=== PATIENT | female | born 1950 | race Caucasian/White ===

== ENCOUNTER 2025-04-30 22:01 | Inpatient (IN) | payer MEDICARE, OTHER, SELFPAY ==
[2025-04-30] VITALS (7 sets, daily range): BP systolic 130–174; BP diastolic 78–100; BMI 17.5; BMI 18.9
[2025-04-30 19:51] LABS: Urine Character Clear (Clear)
--- NOTE | 2025-04-30 19:56 | ED.GENMED ---
History of Present Illness
General
Chief Complaint: Abnormal Lab Value
Source: patient
Exam Limitations: none
Time Seen by Provider: 04/30/25 19:56
Nursing documentation reviewed up to this point in time: agreed with
History of Present Illness
History of Present Illness:
Patient to ED for admission, IV antibiotics after positive blood culture result. She has a complex past medical history. 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 She has had episodes of rigors for 1 year. States her providers
have been unable to identify the reason for this. She states she takes Dilaudid p.o. at the onset of her symptoms. She is followed by GI at [facility]. She states that she receives magnesium infusions every Friday through Friday through a port. States
she was admitted to [facility] in June for septic shock. States this week she started to feel weaker than her normal. She had a trip and fall on Friday and sustained a hematoma to her right orbit left wrist and right knee. She was seen for routine
visit by visiting nurse on Friday. Patient states visiting nurse was concerned that she was declining. After consulting with the GI provider, visiting nurse yeni labs including blood cultures. Patient states she received a call today that her
blood culture was positive for Klebsiella oxytoca. She was advised to come to the ED for admission and IV antibiotics. I was able to review culture results through her phone/[employer]. Request for lab results sent to [facility], waiting for results. She
denies fever or chills. States she feels just slightly weaker than her normal. To ED accompanied by spouse.
Past History
Past History
ED Past Medical History: Other (Short gut, malrotation.)
ED Past Surgical History: Appendectomy, Orthopedic and Other (Lumpectomy, hemorrhoidectomy, cataracts)
Review of Systems
Review of Systems
Allergies reviewed?: Yes
All Other Systems: ROS reviewed and negative except as documented in HPI and ROS
Constitutional: Reports no symptoms
EENT: Reports no symptoms
Respiratory: Reports no symptoms
Cardiac: Reports no symptoms
ABD/GI: Reports no symptoms
: Reports no symptoms
Musculoskeletal: Reports no symptoms
Skin: Reports no symptoms
Neurological: Reports weakness
Psychiatric: Reports no symptoms
Phy Exam
General Physical Exam
General Presentation: no apparent distress
General age: appears stated age
General Skin: warm and dry
General Habitus: frail
General Mental: alert
Cardiovascular Exam
Cardiovascular Exam: regular rate/rhythm and no edema
Pulmonary Exam
Pulmonary Exam: lungs clear and no respiratory distress
Gastrointestinal Exam
Gastrointestinal Exam: normal bowel sounds, non tender, soft, no organomegaly and non distended
Musculoskeletal Exam
Musculoskeletal Exam: full ROM and neuro vasc intact
Skin Exam
Skin Exam: normal color, warm/dry and no rash
Psychiatric Exam
Psychiatric Exam: normal mood/affect
Course
Orders/Labs/Results
Orders:
Orders
04/30/25 Breakfast
Regular
At Your Request: Full Participation
04/30/25 19:20
IV Insert/Care/Rem.- Treatment PRN
04/30/25 19:39
Complete Blood Count/With Diff Urgent
Comprehensive Metabolic Panel Urgent
Lactic Acid Q4H
Comment: ON ICE, CANCEL 2ND ORDER IF FIRST LACTIC ACID LEVEL <2
Magnesium Urgent
Comment: ADD ON
Urinalysis Reflex To Culture Urgent
Date Specimen was Collected: 04/30/25
Time Specimen was Collected: 19:21
Urine Microscopic Reflex Cult Urgent
Blood Culture Q20M
PETER Source: Blood/Venous
Specimen Description:
Comment: Urgent from separate sites. If patient screens positive for possible sepsis
Urine Culture Urgent
PETER Source: U
Specimen Description:
Date Specimen was Collected: 04/30/25
Time Specimen was Collected: 19:21
04/30/25 20:47
Add On- LAB Urgent
Tests Added?: Magnesium
04/30/25 21:04
Blood Culture Q20M
PETER Source: Blood/Venous
Specimen Description:
Comment: Urgent from separate sites. If patient screens positive for possible sepsis
04/30/25 21:08
INFECTIOUS DISEASE CONSULT Urgent
Consulting Provider: Ivanna Swift
Was physician already notified: Yes
04/30/25 21:09
CefTRIAXone [Rocephin] 1,000 mg IV NOW STA
04/30/25 21:33
Echo 2D MMode Color/Doppler Routine
Reason for Study: sob
Head wo Contrast CT [CT Head W/o Iv Contrast] Stat
Comment:
Reason For Exam: fall
04/30/25 21:37
CR Chest - 2 Views Stat
Comment:
Reason For Exam: sob
04/30/25 21:45
Admit/Transfer Patient As Directed
Co-Sign Provider:
Level of Care: Inpatient admission
Assign to:: Telemetry
Physician / Group: july keane
Diagnosis: bactremia
Reason for Telemetry: Arrhythmia
Date to Stop Telemetry: 05/03/25
Time to Stop Telemetry: 11:00
Reason for Hospitalization: bactremia
Expected length of stay greater than two midnights?: Yes
ELOS- Estimated Length of Stay in days: 3
I certify the patient meets the requirements for IP care: Yes
PRN Pain Medication Management As Directed
May give lesser potent ordered pain med per pt: Yes
preference::
Protocol:: Medication orders for pain may be administered in a
manner that supports deferring to patient preference
when the pt is:
- Requesting an ordered lesser potent pain medication.
Least to most potent pain medications are defined
as: acetaminophen < NSAID < tramadol < opioids
(morphine, oxycodone, hydromorphone).
- Requesting a lesser dose of the same medication IF
ORDERED.
- Requesting a less intrusive route of administration
if both routes are prescribed by the provider (PO <
IV).
04/30/25 21:47
Code Status As Directed
Resuscitation Status: Full Code
04/30/25 23:30
Acetaminophen [Tylenol] 650 mg PO Q4HPRN PRN
Bisacodyl [Dulcolax] 10 mg RECTAL [id number] PRN
Diphenhydramine [Benadryl] 25 mg PO HS PRN insomnia
Docusate W/Senna [Senokot-S] 1 tablet PO BIDPRN PRN
Melatonin 10 mg PO HS PRN insomnia
Oxycodone [Roxicodone] 5 mg PO Q6H PRN pain
Polyethylene Glycol Powder [Miralax] 17 grams PO DAILYPRN PRN
04/30/25 23:30
EKG [Electrocardiogram (*1)] Routine
Reason for Study: Atrial Fibrillation
Activity As Directed
Activity Level: As Tolerated
Vital Signs As Directed
Frequency: Per unit guidelines
Pt Eval And Treat Routine
Activity Level: As Tolerated
DX Deep Vein Thrombosis Video Routine
05/01/25 06:31
Basic Metabolic Panel IN AM
Complete Blood Count/No Diff IN AM
05/01/25 08:00
Aspirin Chewable [Low Strength Aspirin] 81 mg PO DAILY
Citalopram [Celexa] 40 mg PO DAILY
Diphenoxylate / Atropine [Lomotil] 1 tablet PO BID@0800,1700
Gabapentin [Neurontin] 200 mg PO BID
Lidocaine [Lidocaine 4% Patch] 1 patch TOPICAL DAILY
Apply Lidocaine patch(s) to:: toes
Magnesium Oxide 200 mg PO BID
Metoprolol [Lopressor] 12.5 mg PO BID
Pantoprazole [Protonix] 40 mg PO BID
Potassium Citrate [Urocit-K] 10 meq PO DAILY
teduglutide See Dose Instructions SC DAILY
05/01/25 18:00
Enoxaparin Sodium [Lovenox] 40 mg SC QPM
05/01/25 21:00
CefTRIAXone [Rocephin] 1,000 mg IV Q24H
Abnormal Lab Results
04/30/25
19:39
WBC 3.8 L 10^3/uL
(4.8-10.8)
RBC 3.36 L 10^6/uL
(4.20-5.40)
Hgb 10.8 L g/dL
(12.0-16.0)
Hct 34.0 L %
(37.0-47.0)
MCV 101.2 H fL
(81.0-99.0)
MCH 32.1 H pg
(27.0-31.0)
MCHC 31.8 L g/dL
(33.0-37.0)
Neutrophils % 39.4 L %
(42.2-75.2)
Monocytes % 10.5 H %
(1.7-9.3)
Chloride 113 H mmol/L
(98-107)
Magnesium 1.5 L mg/dl
(1.6-2.3)
Leukocyte Esterase Rfl 1+ A
(Negative)
Urine Bacteria (Reflex) Moderate A
(Negative)
04/30/25 19:39
04/30/25 19:39
Vital Signs
Initial and Last Documented VS:
Initial Vital Signs
Temp Pulse Resp BP Pulse Ox
97.5 F 97 20 174/97 100
04/30/25 19:09 04/30/25 19:09 04/30/25 19:09 04/30/25 19:09 04/30/25 19:09
Last Documented Vital Signs
Temp Pulse Resp BP Pulse Ox
97.9 F 79 18 98/51 95
05/01/25 20:05 05/01/25 20:05 05/01/25 20:05 05/01/25 20:05 05/01/25 20:05
*Pulse Oximetry
SaO2: 100
Oxygen Mode of Delivery: Room air
Patient hypoxic: no
*Critical Care Note
Total Time (30-74mins, 75-104mins- exclusive of procedures): Not Applicable
Update Note
Update Note:
Patient to the emergency department for admission, IV antibiotics. She had blood cultures drawn on Friday which resulted positive for Klebsiella oxytoca. She is afebrile. Reports feeling slightly weaker than her normal. She follows with GI at
[facility] for her history of short gut and malrotation. She has a port. Receives magnesium infusions Friday through Friday weekly. No redness or swelling surrounding port. Case discussed with Dr. Swift. Recommends IV ceftriaxone which will be started
after second blood culture. Patient will be admitted to the hospitalist service with ID consultation.
ED Attending Note
-
Portions of this chart may have been created with voice recognition software.� Occasional wrong word or��sound alike� substitutions may have occurred due to the inherent limitations of voice recognition software.
Discharge Plan
Departure
Patient Disposition: Admit
Date of Disposition: 04/30/25
Time of Disposition: 21:05
Presentation/result/management discussed w/ accepting MD/DO: Hospitalist
Patient with high blood pressure during this ER visit?: No
Condition: Good
Discharge Problem:
Blood bacterial culture positive
Interventions
Interventions:
*Risk Screen - Suicide Last Done: 04/30/25 23:10
*General Assessment Last Done: 04/30/25 19:09
*Neglect/Abuse Screening Last Done: 04/30/25 19:09
*ED- Fall Risk Assessment Last Done: 04/30/25 20:48
*ED COVID-19 Vaccine History Last Done: 04/30/25 23:10
*ED Influenza Vaccine History Last Done: 04/30/25 20:48
*Nursing Disposition Last Done: 04/30/25 22:53
Discharge Date and Time
Discharge Date/Time: 04/30/25 22:56
[2025-04-30 20:01] LABS: Urine Squamous Cell >30 /LPF (Few)
[2025-04-30 20:03] LABS: Urine Red Blood Cell 0-2 /HPF (0-2)
[2025-04-30 20:04] LABS: Hematocrit 34.0 % (37.0-47.0); Hemoglobin 10.8 g/dL (12.0-16.0); Mean Corp Hgb Conc. 31.8 g/dL (33.0-37.0); Mean Corpuscular Volume 101.2 fL (81.0-99.0); Platelet Count 137 10^3/uL (130-400); Red Cell Dist. Width 13.2 % (11.5-14.5)
[2025-04-30 20:07] LABS: ALT (SGPT) 19 U/L (0-35); AST (SGOT) 18 U/L (14-36); Albumin 3.8 g/dl (3.5-5.0); Alkaline Phosphatase 70 U/L (38-126); Blood Urea Nitrogen 16 mg/dl (7-17); Calcium 8.9 mg/dl (8.4-10.2); Carbon Dioxide 22 mmol/L (22-30); Chloride 113 mmol/L (98-107); Glucose 89 mg/dl (70-99); Potassium 4.2 mmol/L (3.5-5.1); Sodium 141 mmol/L (135-145); Total Protein 6.3 g/dl (6.3-8.2); eGFR > 60.00
[2025-04-30 20:25] LABS: Nucleated Red Blood Cells % 0 %
--- NOTE | 2025-04-30 21:15 | HPS.HSE ---
Family Physician
-
Family Physician:
Chief Complaint
-
rigors and weakness
History of Present Illness
74 year old with PMH for short gut syndrome, atrial fib presented to us with positive blood culture. patient was not feeling well for past one week. she complained of rigors and weakness. she had fall on Friday. patient not sure how she fell but
thinks her legs gave up and fell. she landed on her buttocks, hit head on the door. her right eye is bruised. her left hand was bruised.due the short gut syndrome and chronic malrotation, her magnesium is chronically low. she get 3gram magnesium
daily from Friday to Friday. she had an blood work as well as blood culture as outpatient. her blood culture came back positive for klebsiella oxytoca.She was advised to come to the ED for admission and IV antibiotics. patient denied fever, chills,
chest pain,sob. stated some ONEAL. denied dizzy or syncope. denied abdominal pain,n,v,d. denied dysuria or hematuria. stated increased urination at night time.
Patient received a dose of ceftriaxone in ER. Blood culture sent from ER. Admitting for further manage.
Medical History
Past Medical History
Past Medical History: Reports Other
Additional Past Medical History:
Short gut syndrome, paroxysmal AF, septic shock, gangrene of the foot
Past Surgical History: Reports Other
Additional Past Surgical History:
fundectomy
small intestine removal
appendectomy
Social History
Tobacco: Non-smoker
Alcohol: None
Drug: None
Personal:
Living: With Family
Family History
Family History: Not pertinent
Allergies / Home Medications
Allergies reflects when Allergies were last updated in [employer]
Home Medications with original date entered in [employer].
Allergy/Medication List:
Allergies
Allergy/AdvReac Type Severity Reaction Status Date / Time
chlorhexidine Allergy Hives Verified 04/30/25 19:09
prochlorperazine (From Allergy Unknown Verified 04/30/25 19:09
Compazine)
Review of Systems
-
Constitutional: Reports No Symptoms and Other (rigors)
EENT: Reports No Symptoms
Respiratory: Reports No Symptoms
Cardiac: Reports No Symptoms
Abdomen/GI: Reports No Symptoms
: Reports No Symptoms
Musculoskeletal: Reports No Symptoms
Skin: Reports No Symptoms
Neurological: Reports Weakness
Endocrine: Reports No Symptoms
Hematologic/Lymphatic: Reports No Symptoms
Psych: Reports No Symptoms
Physical Exam
Vital Signs
Vital Signs
Temp Pulse Resp BP Pulse Ox
97.5 F 76 17 146/78 100
04/30/25 19:09 04/30/25 20:45 04/30/25 20:45 04/30/25 20:39 04/30/25 21:08
Physical Exam
General: Well Developed, Well Nourished and No Apparent Distress
HEENT: NormoCephalic, Moist mucous membranes and Atraumatic
Respiratory: Clear
Cardiac: S1/S2 and Regular Rhythm; No Murmur or Rub
GI: Soft, Non Tender, Non Distended and Normal Bowel Sounds; No Organomegaly
Rectal: Deferred by Provider
Musculoskeletal: No Clubbing, No Cyanosis and No Edema
Skin: No Rash
Neuro: AO x 3 and Nonfocal/grossly intact
Psych: Calm
Laboratory Results
-
04/30/25 19:39
04/30/25 19:39
Laboratory Results
Lactic Acid Cancelled 04/30/25 23:30
Total Bilirubin 0.3 mg/dl (0.2-1.3) 04/30/25 19:39
AST 18 U/L (14-36) 04/30/25 19:39
ALT 19 U/L (0-35) 04/30/25 19:39
Alkaline Phosphatase 70 U/L (38-126) 04/30/25 19:39
Data Reviewed
-
Lab Data: Labs Reviewed by me
Impression/Plan
-
# Bacteremia
- Outpatient blood cultures positive for Klebsiella oxytoca
- Repeat blood culture
- Ceftriaxone initiated
- ID consulted
- Obtain chest x-ray, UA and echo
# Mechanical fall
- Obtain CT of head
- PT consulted
# History of short gut syndrome/malrotation
#malabsorption
# Chronic hypomagnesemia
- Mag level pending
- Follows GI at [facility]
# Paroxysmal A-fib
- Obtain EKG
- Metoprolol continue
# DVT prophylax
- Lovenox
# CODE STATUS
- Full code
[2025-04-30] MEDS: ROCEPHIN 1000 MG IV (21:17)
--- NOTE | 2025-04-30 21:17 | W.PN.UPDATE ---
Addendum entered and electronically signed by Harlan Seo MD 04/30/25 22:11:
Upgrade to TLM monitor due to hi grade bacteremia, HX card arrest and HX septic shock
Original Note:
Update Note
Progress Note Update
This note serves as an addendum to the H&P by servicing rep Dave MARLEY�
HPI�
74F complex HX with acquired short gut syndrome , remote HX 19 feet of small bowel resection( 2007) due to severe diverticulitis and SB malrotation send to ER for POS Klebsiella BCx ( 04/10/25) came to ER:
- frequent episodes of rigors for unclear reason
- followed by GI at [facility]
- on Magnesium infusions Q Friday through Friday through a port.
- HX admission to [facility] in June for septic shock.
- Report trip and fall on Friday and sustained a hematoma to her right orbit left wrist and right knee.
- Has VN home visit on Friday,. was concerned that she was declining
- VN draw BCx ( 04/29/25) suggested by Primary GI
- received a call today that POS BCx for Klebsiella oxytoca
- She was advised to come to the ED for admission and IV antibiotics.
ROS:
denies fever or chills.
- weaker than her normal.
ER consulted ID
- 2 BCx sent
- Empiric IV CFTZ
Reviewed VS:
04/30/25
19:09
Temp 97.5 F
Pulse 97
Resp Rate 20
Blood pressure 174/97
SaO2 100
Oxygen Mode of Delivery Room air
PE
Gen: Not toxic , appropriate
HEENT: Rt periorbital hematoma
Neck: supple
Lungs: symmetric AE. No additional sound
Cor:RRR S1 S2 soft SM at LUSB
Abdomen:�soft NT NG
DISC PAD GRINDER: AAO3 NFND
MS:no edema
Psych: Nl mood and affect
Lt upper chest Port and balloon port - Non tender. No evidence of local cellultis
Relevant Data�
04/30/25
19:39
WBC 3.8 L
Hgb 10.8 L
Plt Count 137
Sodium 141
Potassium 4.2
Chloride 113 H
BUN 16
Creatinine 0.9
eGFR > 60.00
Magnesium 1.5 L
BCx time 2 sent
NO PRIOR hospitalist admission:
ASSESSMENT & PLAN
Klebsiella Bacteremia of unclear source but broad DDX: Endocarditis, Hardware( PORT) infection, source or Bowel
Known HX soft systolic murmur at Lt upper sternal border
No peripheral evidence of endocarditis
Hemodynamically stable
- BCx sent
- UA
- CXR
- IVF NS
- Empiric IV CFTZ
- Transthoracic ECHO to screen
- ID consult
Fall with head injury sustained R periorbital hematoma
HX suggestive of mechanical fall
- denied ONEAL, N/V, abnormal vision
- HCT to be thorough - clinically low yield but not evalautated post fall
Hypomagnesemia due to acquired short gut syndrome
Remote HX 19 feet of small bowel resection( 2007) due to severe diverticulitis and SB malrotation
- Regular infusion at [facility]
DVT Px: LMWH
Full code
IP MS
[2025-04-30 21:31] LABS: Magnesium 1.5 mg/dl (1.6-2.3)
[2025-05-01] VITALS (7 sets, daily range): BP systolic 96–136; BP diastolic 51–81; PULSE 69; BMI 18.9
[2025-05-01 07:20] LABS: Hematocrit 33.6 % (37.0-47.0); Hemoglobin 10.9 g/dL (12.0-16.0); Mean Corp Hgb Conc. 32.4 g/dL (33.0-37.0); Mean Corpuscular Volume 100.3 fL (81.0-99.0); Platelet Count 139 10^3/uL (130-400); Red Cell Dist. Width 12.9 % (11.5-14.5)
[2025-05-01 07:46] LABS: Blood Urea Nitrogen 16 mg/dl (7-17); Calcium 8.5 mg/dl (8.4-10.2); Carbon Dioxide 22 mmol/L (22-30); Chloride 112 mmol/L (98-107); Estimated Creatinine Clearance 56 ml/min; Glucose 82 mg/dl (70-99); Potassium 3.8 mmol/L (3.5-5.1); Sodium 140 mmol/L (135-145); eGFR > 60.00
[2025-05-01] MEDS: NEURONTIN 200 MG PO ×2 (08:24→19:43)
[2025-05-01] MEDS: LIDOCAINE 4% PATCH TOPICAL (08:24)
[2025-05-01] MEDS: MAGNESIUM OXIDE 200 MG PO ×2 (08:25→19:43)
[2025-05-01] MEDS: LOW STRENGTH ASPIRIN 81 MG PO (08:25)
[2025-05-01] MEDS: UROCIT-K 10 MEQ PO (08:26)
[2025-05-01] MEDS: PROTONIX 40 MG PO ×2 (08:27→19:43)
[2025-05-01] MEDS: LOPRESSOR 12.5 MG PO (08:27)
[2025-05-01] MEDS: CELEXA 40 MG PO (08:28)
--- NOTE | 2025-05-01 09:26 | CM ---
CM met with pt at bedside.
Pt presents from home. Resides with spouse and autistic grandson (age 34). 2 SH with bedroom/bath on 2nd floor. Powder room on first. Independent with ambulation up until a few days ago has been using the RW (owns a RW). Does not drive.
Pt is open with [facility] for magnesium infusions. Port get's accessed on Mondays, daily Mg through Friday then de-accessed.
Hx of home PT with [facility]. no SNF history.
PCP is Dr. Juanito Crane. Pharmacy is [facility].
Anticipated Discharge dispo home with [facility] and possible home PT needs. Pt reports preference is to dc home at [place]. Has a supportive family and a first great grandchild to meet (planned on meeting at [facility]).
--- NOTE | 2025-05-01 10:55 | CON.ID ---
Consultation
-
Date/Time Consultation Requested: April 30, 2025 2108
Date/Time Consultation Performed: May 01, 2025 1100
Requesting Provider: KENDRA Lawler
Performing Provider: Dr. Ivanna Swift
Reason for Consultation: Bacteremia
Chief Complaint / Past History
Chief Complaint
Positive blood culture
History of Present Illness
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
positive blood cultures. She follows with [facility] and has monthly labs drawn. For the past week she has not been feeling well with weakness, rigors and fall. She hit her face during one of the falls. No fever. Of note, recently she was having
trouble flushing the port. The home nurse also had difficulty but finally able to get it to work. The next day she started having the rigors. April 29, home nurse yeni 2 sets of blood cultures, 1 peripherally and the second set from the port.
Patient received a call from her GI physician that blood culture is positive for Klebsiella oxytoca. She therefore came to the ER. She is currently on ceftriaxone. She reports no further rigors since the port was deaccessed on Friday.
Past History
Additional Past Medical History:
Atrial fibrillation
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
Short gut syndrome on IV magnesium via port
History of RCW port polymicrobial infection (06/2024)
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
LCW port placment 07/2024
Appendectomy
Allergy History:
chlorhexidine Allergy (Verified 04/30/25 19:09)
Hives
prochlorperazine (From Compazine) Allergy (Verified 04/30/25 19:09)
Unknown
Medications Reviewed: Yes
Current Antibiotics:
Ceftriaxone
Social History
Tobacco: Non-Smoker
Alcohol: None
Drug: None
Personal:
Living: With Family
Family History
Family History: Not Pertinent
Review of Systems
Review of Systems
General: Chills and Change in Appetite
HEENT: Negative Sinus Problems or Headache
Cardiovascular: Negative Chest Pain
Respiratory: Negative Dyspnea
Gasteroenterology: Other (Chronic frequent bowel movements); Negative Nausea, Vomiting or Diarrhea
Genital / Urological: Negative Dysuria or Flank Pain
Endocrine: Weakness and Fatigue
All systems: All other systems were reviewed and were negative
Vital Signs
Temp Pulse Resp BP Pulse Ox
97.7 F 70 16 116/71 94
05/01/25 08:00 05/01/25 08:00 05/01/25 08:00 05/01/25 08:00 05/01/25 08:00
Physical Exam
Physical Exam
Constitutional: No Acute Distress, Comfortable and Cachetic
Eyes: No Conjunctival Hemorrhage and Sclera Anicteric
Cardiovascular: Regular Rate and S1/S2
Pulmonary: Clear
Gastrointestinal: Soft, Non Tender, Non Distended and Normal Bowel Sounds
Genito-Urinary: Negative CVA Tenderness
Extremities: Negative Edema
Neurological: AO x 3
Lines: Port (LCW port not accesses, no erythema)
Lab / Diagnostic Study Results
05/01/25 06:31
05/01/25 06:31
Abs Immat Gran (auto) 0.0 10^3/uL (0-0.05) 04/30/25 19:39
Absolute Neuts (auto) 1.5 10^3/uL (1.4-6.5) 04/30/25 19:39
Absolute Lymphs (auto) 1.8 10^3/uL (1.2-3.4) 04/30/25 19:39
Absolute Monos (auto) 0.4 10^3/uL (0.1-0.6) 04/30/25 19:39
Absolute Basos (auto) 0.0 10^3/uL (0-0.2) 04/30/25 19:39
Immature Gran % 0.3 % (0-0.5) 04/30/25 19:39
Neutrophils % 39.4 % (42.2-75.2) L 04/30/25 19:39
Lymphocytes % 46.2 % (20.5-51.1) 04/30/25 19:39
Monocytes % 10.5 % (1.7-9.3) H 04/30/25 19:39
Eosinophils % 3.1 % (0-6) 04/30/25 19:39
Basophils % 0.5 % (0-2) 04/30/25 19:39
Lactic Acid Cancelled 04/30/25 23:30
Ur Squamous Epith Cells >30 /LPF (Few) 04/30/25 19:39
Microbiology Results
Micro:
04/30/25 21:04 Blood Culture - Pending
Blood/Venous
04/30/25 19:39 Urine Culture - Pending
Urine
04/30/25 19:39 Blood Culture - Pending
Blood/Venous
04/30/25 CXR: Mild left basilar airspace opacities which may represent atelectasis or pneumonia.
Assessment / Plan
# Klebsiella oxytoca CLABSI (L port), present on admission
- 04/29 outside bcx's 2 bottles from port + K. oxytoca, sensitivity pending
second set of blood cx drawn peripherally negative to date
- Follow repeat blood cx's here (drawn peripherally)
- Continue ceftriaxone pending susceptibility.
# Short gut syndrome on magnesium infusion
# hx CLABSI (R port) with cardiac arrest, septic shock, ischemic digits (06/2024). Port dc'd.
Care Review
Plan reviewed with: Physician (Dr. Wilfredo Collins)
--- NOTE | 2025-05-01 12:39 | W.PN.HOSP.TC ---
Today's Communication/Plan
-
Follow-up repeat blood culture report
Obtain records of outpatient blood cs
Assessment / Plan
Assessment / Plan
1. Gram-negative bacteremia
- Patient had an outpatient blood culture collected and reportedly be positive for Klebsiella oxytoca, obtain records from outpatient office
- Repeat blood culture has been collected in our hospital, follow-up results
- Patient is afebrile, no WBC
- No reported wound/recent pulm/GI/urinary infection
- Port-A-Cath in place which is a potential source of entry, no alarming signs on exam
- Patient has been started on Rocephin from ER,
- ID evaluation is requested for further help
2. History of small bowel syndrome
history of bowel resection
- Patient symptoms has been controlled with home medication of subcu teduglutide injection
-Patient to be resumed on the medication once spouse is able to provide supply
3. Hypomagnesemia
-Patient requires daily magnesium infusion through Friday to Friday
-Magnesium 1.5 today, recheck in the morning and will provide IV mag as warranted
4. Parox afib
- Maintain on home dose of Toprol
- Currently rate controlled, not on anticoagulation
5. Depression/anxiety
- Maintained on Celexa 40 mg daily
Full code
Anticipated Discharge: > 48 hours
Subjective/Interval History
-
Date of Service: May 01, 2025
Patient denies of any ongoing symptoms
Afebrile posthospitalization
Objective Data
-
Labs:
Laboratory Results
05/01/25
06:31
WBC 3.9 L
Hgb 10.9 L
Hct 33.6 L
Plt Count 139
Sodium 140
Potassium 3.8
Chloride 112 H
Carbon Dioxide 22
BUN 16
Creatinine 0.7
Glucose 82
Calcium 8.5
Vital Signs:
Vital Signs
Temp Pulse Resp BP Pulse Ox
97.7 F 70 16 116/71 94
05/01/25 08:00 05/01/25 08:00 05/01/25 08:00 05/01/25 08:00 05/01/25 08:00
I&O
04/30/25 05/01/25 05/02/25
06:59 06:59 06:59
Intake Total 480 / 480
Balance 480 / 480
Review of Systems
-
Respiratory: Reports No Symptoms
Cardiac: Reports No Symptoms
Abdomen/GI: Reports No Symptoms
Physical Exam
-
General: Cachectic
HEENT: Negative Oxygen
Respiratory: Other (Left upper chest port site exam -no tenderness/fluctuation on exam. No erythema/warmth appreciated)
Neuro: Awake, Alert, Oriented and No Motor Deficits
[2025-05-01] MEDS: NON-FORMULARY ITEM 2.3 MG SC (14:06)
--- NOTE | 2025-05-01 14:30 | PTCARENOTE ---
assumed care of pt for 3pm-7pm. pt is sitting comfortably in bed, CB in reach- family at bedside. No change in previously documented assessment
--- NOTE | 2025-05-01 14:46 | PTCARENOTE ---
pt's home medication Teduglutide returned from pharmacy, profiled and on AUG. Box is large and unable to be stored in cart. Pt expressed concern r/t cost of medication and feared it would get lost. Medication in box with pharmacy label in pt's room
on shelf to which she is in agreement with. Aware it can only be administered by staff while admitted
[2025-05-01] MEDS: LOVENOX 40 MG SC (17:09)
[2025-05-01] MEDS: LOPRESSOR PO (19:45)
[2025-05-01] MEDS: TYLENOL 650 MG PO (20:00)
[2025-05-01] MEDS: STERILE WATER FOR INJECTION 10 ML IV (20:00)
[2025-05-01] MEDS: ROCEPHIN 1000 MG IV (20:00)
[2025-05-02 03:08] VITALS: BP 105/54
[2025-05-02 06:35] LABS: Hematocrit 33.0 % (37.0-47.0); Hemoglobin 10.5 g/dL (12.0-16.0); Mean Corp Hgb Conc. 31.8 g/dL (33.0-37.0); Mean Corpuscular Volume 100.9 fL (81.0-99.0); Platelet Count 154 10^3/uL (130-400); Red Cell Dist. Width 13.1 % (11.5-14.5)
[2025-05-02] MEDS: TYLENOL 650 MG PO (06:44)
[2025-05-02 07:01] LABS: Blood Urea Nitrogen 16 mg/dl (7-17); Calcium 8.8 mg/dl (8.4-10.2); Carbon Dioxide 25 mmol/L (22-30); Chloride 111 mmol/L (98-107); Estimated Creatinine Clearance 56 ml/min; Glucose 85 mg/dl (70-99); Magnesium 1.4 mg/dl (1.6-2.3); Potassium 4.1 mmol/L (3.5-5.1); Sodium 140 mmol/L (135-145); eGFR > 60.00
[2025-05-02 07:07] VITALS: BP 106/57
[2025-05-02] MEDS: LOPRESSOR 12.5 MG PO (07:33)
[2025-05-02] MEDS: NEURONTIN 200 MG PO ×2 (07:39→20:28)
[2025-05-02] MEDS: LOW STRENGTH ASPIRIN 81 MG PO (07:40)
[2025-05-02] MEDS: UROCIT-K 10 MEQ PO (07:40)
[2025-05-02] MEDS: MAGNESIUM OXIDE 200 MG PO ×2 (07:41→20:29)
[2025-05-02] MEDS: PROTONIX 40 MG PO ×2 (07:41→20:28)
[2025-05-02] MEDS: CELEXA 40 MG PO (07:42)
[2025-05-02] MEDS: LIDOCAINE 4% PATCH TOPICAL ×2 (07:42→07:56)
[2025-05-02] MEDS: NON-FORMULARY ITEM 2.3 MG SC (07:48)
[2025-05-02] MEDS: MAGNESIUM SULFATE 50 IV (10:02)
[2025-05-02 11:00] VITALS: BP 96/51
--- NOTE | 2025-05-02 12:45 | CM ---
CM reviewed chart, patient seen bedside, discussed therapy recommendation of home health.
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
Patient is open with [facility] for magnesium infusions.
Patient denies needs from CM at this time.
CM will continue to follow.
Plan; home no needs
--- NOTE | 2025-05-02 13:19 | W.PN.ID1 ---
Date of Service
Date of Service: May 02, 2025
Today's Communication
See below.
Assessment / Plan
# Klebsiella oxytoca CLABSI (L port), present on admission
# Short gut syndrome on magnesium infusion
# hx CLABSI (R port) with cardiac arrest, septic shock, ischemic digits (06/2024). Port dc'd.
- 04/29 outside bcx's 2 bottles from port + K. oxytoca, sensitivities noted.
second set of blood cx drawn peripherally negative to date
- blood cx's x2 here (drawn peripherally before abx): neg to date
- Continue ceftriaxone 2g IV q24h
- Recommend dc port, cx tip, then place PICC for home IC magnesium.
- At time of dc, can transition to po levofloxacin
- Patient agreeable with plan.
# Conditions present on admission:
Atrial fibrillation
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
Short gut syndrome on IV magnesium via port
History of RCW port polymicrobial infection (06/2024)
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
LCW port placement 07/2024
Appendectomy
Chief Complaint
-: Bacteremia
Subjective / Review of Systems
Feeling better.
Vital Signs / Physical Exam
Vital Signs
Vital Signs
Temp Pulse Resp BP Pulse Ox
98.3 F 69 12 96/51 96
05/02/25 11:00 05/02/25 11:00 05/02/25 11:00 05/02/25 11:00 05/02/25 11:00
Physical Exam
Constitutional: No Acute Distress and Cachetic
Pulmonary: Clear
Gastrointestinal: Soft, Non Tender and Non Distended
Extremities: Negative Edema
Neurological: AO x 3
Lines: Port (LCW not accessed)
Objective Data
Lab Data
Lab Results
05/02/25 06:06
05/02/25 06:06
Estimated Creat Clear 56 ml/min 05/02/25 06:06
Lactic Acid Cancelled 04/30/25 23:30
Total Bilirubin 0.3 mg/dl (0.2-1.3) 04/30/25 19:39
AST 18 U/L (14-36) 04/30/25 19:39
ALT 19 U/L (0-35) 04/30/25 19:39
Alkaline Phosphatase 70 U/L (38-126) 04/30/25 19:39
Most recent labs reviewed.
Micro Results:
04/30/25 19:39 Urine Culture - Final
Urine
04/30/25 21:04 Blood Culture - Preliminary
Blood/Venous No Growth in 24 hours- Final report to follow
04/30/25 19:39 Blood Culture - Preliminary
Blood/Venous No Growth in 24 hours- Final report to follow
04/30/25 CXR: Mild left basilar airspace opacities which may represent atelectasis or pneumonia.
Care Review
Plan reviewed with: Physician (Dr. Ines Collins)
[2025-05-02] MEDS: STERILE WATER FOR INJECTION 20 ML IV (14:01)
[2025-05-02] MEDS: ROCEPHIN 2000 MG IV (14:01)
[2025-05-02 15:00] VITALS: BP 101/61
[2025-05-02] MEDS: LOVENOX 40 MG SC (17:44)
--- NOTE | 2025-05-02 18:40 | W.PN.HOSP.TC ---
Today's Communication/Plan
-
f.u blood culture reoprt
IRAD cosult for port removal
Assessment / Plan
Assessment / Plan
1. Klebsiella bacteremia from catheter associated infection
- Patient had an outpatient blood culture collected and reportedly be positive for Klebsiella oxytoca, obtain records from outpatient office
- Repeat blood culture has been collected in our hospital, follow-up results
- Patient is afebrile, no WBC elevation
- No reported wound/recent pulm/GI/urinary infection
- Port-A-Cath in place which is a potential source of entry, no alarming signs on exam
- Patient has been started on Rocephin from ER,
- ID evaluated and help appreciated
- IRAD consulted for port-a-cath removal and placement of tunneled cath, will update the [facility] as well.
2. History of small bowel syndrome
history of bowel resection
- Patient symptoms has been controlled with home medication of subcu teduglutide injection
-Patient to be resumed on the medication once spouse is able to provide supply
3. Hypomagnesemia
-Patient requires daily magnesium infusion through Friday to Friday
-Magnesium 1.4 today, ordered 2g mag today; recheck in am
4. Parox afib
- Maintain on home dose of Toprol
- Currently rate controlled, not on anticoagulation
5. Depression/anxiety
- Maintained on Celexa 40 mg daily
Full code
Case discussed with ID and IRAD
Anticipated Discharge: 24 - 48 hours
Subjective/Interval History
-
Date of Service: May 02, 2025
patient is afebrile
no new issues reported
Objective Data
-
Labs:
Laboratory Results
05/02/25
06:06
Sodium 140
Potassium 4.1
Chloride 111 H
Carbon Dioxide 25
BUN 16
Creatinine 0.7
Glucose 85
Calcium 8.8
Vital Signs:
Vital Signs
Temp Pulse Resp BP Pulse Ox
98.0 F 82 16 101/61 95
05/02/25 15:00 05/02/25 15:00 05/02/25 15:00 05/02/25 15:00 05/02/25 15:00
I&O
05/01/25 05/02/25 05/03/25
06:59 06:59 06:59
Intake Total 480 / 480 840 / 840 480 / 480
Balance 480 / 480 840 / 840 480 / 480
Review of Systems
-
Respiratory: Reports No Symptoms
Cardiac: Reports No Symptoms
Abdomen/GI: Reports No Symptoms
Physical Exam
-
General: Cachectic
HEENT: Negative Oxygen
Respiratory: Other (Left upper chest port site exam -no tenderness/fluctuation on exam. No erythema/warmth appreciated)
Neuro: Awake, Alert, Oriented and No Motor Deficits
[2025-05-02] MEDS: LOPRESSOR PO (20:30)
[2025-05-02 20:50] VITALS: BP 99/59
[2025-05-02 23:34] VITALS: BP 101/53
[2025-05-03] VITALS (11 sets, daily range): BP systolic 60–142; BP diastolic 42–84; PULSE 70
[2025-05-03] MEDS: TYLENOL 650 MG PO ×2 (05:09→20:27)
[2025-05-03] MEDS: LOW STRENGTH ASPIRIN 81 MG PO (07:20)
[2025-05-03] MEDS: MAGNESIUM OXIDE 200 MG PO ×2 (07:21→20:22)
[2025-05-03] MEDS: NEURONTIN 200 MG PO ×2 (07:21→20:24)
[2025-05-03] MEDS: PROTONIX 40 MG PO ×2 (07:21→20:24)
[2025-05-03] MEDS: CELEXA 40 MG PO (07:21)
[2025-05-03] MEDS: UROCIT-K 10 MEQ PO (07:21)
[2025-05-03] MEDS: LOPRESSOR PO (07:26)
[2025-05-03] MEDS: LIDOCAINE 4% PATCH TOPICAL (07:28)
[2025-05-03] MEDS: NON-FORMULARY ITEM 2.3 MG SC (07:28)
[2025-05-03] MEDS: ROXICODONE 5 MG PO ×2 (07:39→18:49)
[2025-05-03 07:43] LABS: Hematocrit 33.2 % (37.0-47.0); Hemoglobin 10.3 g/dL (12.0-16.0); Mean Corp Hgb Conc. 31.0 g/dL (33.0-37.0); Mean Corpuscular Volume 107.1 fL (81.0-99.0); Platelet Count 162 10^3/uL (130-400); Red Cell Dist. Width 12.8 % (11.5-14.5)
[2025-05-03 08:38] LABS: Blood Urea Nitrogen 18 mg/dl (7-17); Calcium 8.8 mg/dl (8.4-10.2); Carbon Dioxide 25 mmol/L (22-30); Chloride 110 mmol/L (98-107); Estimated Creatinine Clearance 56 ml/min; Glucose 88 mg/dl (70-99); Magnesium 1.6 mg/dl (1.6-2.3); Potassium 3.9 mmol/L (3.5-5.1); Sodium 139 mmol/L (135-145); eGFR > 60.00
[2025-05-03] MEDS: ZOFRAN 4 MG IV (09:02)
[2025-05-03] MEDS: STERILE WATER FOR INJECTION 20 ML IV (13:35)
[2025-05-03] MEDS: ROCEPHIN 2000 MG IV (13:35)
--- NOTE | 2025-05-03 13:35 | W.PN.HOSP.TC ---
Today's Communication/Plan
-
see note
Assessment / Plan
Assessment / Plan
1. Klebsiella bacteremia from catheter associated infection
- Patient had an outpatient blood culture collected and reportedly be positive for Klebsiella oxytoca, obtain records from outpatient office
- Port-A-Cath in place which is a potential source of entry, no alarming signs on exam
- Patient has been started on Rocephin from ER
- ID evaluated and help appreciated
- IRAD consulted for port-a-cath removal and placement of tunneled cath, discussed with primary GI Dr. Marily Solitario in agreement and with plan as well.
- Patient outpatient 2 sets of blood culture from port and peripheral site both growing Klebsiella oxytoca, with organism pansensitive except to ampicillin/cefazolin
- ID recommended for patient to be maintained on Rocephin 2 g every 24 hour with transition to oral Levaquin at discharge.
2. History of small bowel syndrome
history of bowel resection
- Patient symptoms has been controlled with home medication of subcu teduglutide injection
-Patient to be resumed on the medication once spouse is able to provide supply
3. Hypomagnesemia
-Patient requires daily magnesium infusion through Friday to Friday
-Magnesium 1.6 today, will get replacement tomorrow if needed
4. Parox afib
- Maintain on home dose of Toprol
- Currently rate controlled, not on anticoagulation
5. Depression/anxiety
- Maintained on Celexa 40 mg daily
Full code
Case discussed with ID/primary GI physician
Total time spent : 55 mins
Anticipated Discharge: Within 24 hours
Subjective/Interval History
-
Date of Service: May 03, 2025
No subjective complaints
afebrile in the night
no acute events reported
Objective Data
-
Labs:
Laboratory Results
05/03/25
06:45
WBC 4.8
Hgb 10.3 L
Hct 33.2 L
Plt Count 162
Sodium 139
Potassium 3.9
Chloride 110 H
Carbon Dioxide 25
BUN 18 H
Creatinine 0.7
Glucose 88
Calcium 8.8
Vital Signs:
Vital Signs
Temp Pulse Resp BP Pulse Ox
98.4 F 65 18 91/51 95
05/03/25 11:33 05/03/25 11:33 05/03/25 11:33 05/03/25 11:33 05/03/25 11:33
I&O
05/02/25 05/03/25 05/04/25
06:59 06:59 06:59
Intake Total 840 / 840 600 / 600
Balance 840 / 840 600 / 600
Review of Systems
-
Respiratory: Reports No Symptoms
Cardiac: Reports No Symptoms
Abdomen/GI: Reports No Symptoms
Physical Exam
-
General: Cachectic
HEENT: Negative Oxygen
Respiratory: Other (Left upper chest port site exam -no tenderness/fluctuation on exam. No erythema/warmth appreciated)
Neuro: Awake, Alert, Oriented and No Motor Deficits
--- NOTE | 2025-05-03 14:17 | W.PN.ID1 ---
Date of Service
Date of Service: May 03, 2025
Today's Communication
DC port and placed tunneled picc today.
at time of dc, can transition to po levofloxacin 750mg po qd through 05/13/25
Assessment / Plan
# Klebsiella oxytoca CLABSI (L port), present on admission
# Short gut syndrome on magnesium infusion
# hx CLABSI (R port) with cardiac arrest, septic shock, ischemic digits (06/2024). Port dc'd.
- 04/29 outside bcx's 2 bottles from port + K. oxytoca, sensitivities noted.
second set of blood cx drawn peripherally negative to date
- blood cx's x2 here (drawn peripherally before abx): neg to date
- Continue ceftriaxone 2g IV q24h (d4)
- Today, IR will dc R port, cx tip, and place tunneled PICC for home IV magnesium.
- At time of dc, can transition to po levofloxacin 750mg po qd through 05/13/25. QTc 477.
# Conditions present on admission:
Atrial fibrillation
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
Short gut syndrome on IV magnesium via port
History of RCW port polymicrobial infection (06/2024)
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
LCW port placement 07/2024
Appendectomy
Chief Complaint
-: Bacteremia
Subjective / Review of Systems
No complaints.
Vital Signs / Physical Exam
Vital Signs
Vital Signs
Temp Pulse Resp BP Pulse Ox
97.5 F 60 21 128/71 97
05/03/25 14:01 05/03/25 14:01 05/03/25 14:01 05/03/25 14:01 05/03/25 14:01
Physical Exam
Constitutional: No Acute Distress and Comfortable
Cardiovascular: Regular Rate and S1/S2
Pulmonary: Clear
Gastrointestinal: Soft, Non Tender and Non Distended
Extremities: Negative Edema
Neurological: AO x 3
Lines: Port (LCW not accessed)
Objective Data
Lab Data
Lab Results
05/03/25 06:45
05/03/25 06:45
Estimated Creat Clear 56 ml/min 05/03/25 06:45
Lactic Acid Cancelled 04/30/25 23:30
Total Bilirubin 0.3 mg/dl (0.2-1.3) 04/30/25 19:39
AST 18 U/L (14-36) 04/30/25 19:39
ALT 19 U/L (0-35) 04/30/25 19:39
Alkaline Phosphatase 70 U/L (38-126) 04/30/25 19:39
Most recent labs reviewed.
Micro Results:
04/30/25 21:04 Blood Culture - Preliminary
Blood/Venous No Growth in 48 hours- Final report to follow
04/30/25 19:39 Blood Culture - Preliminary
Blood/Venous No Growth in 48 hours- Final report to follow
04/30/25 19:39 Urine Culture - Final
Urine
04/30/25 CXR: Mild left basilar airspace opacities which may represent atelectasis or pneumonia.
Care Review
Plan reviewed with: Physician (Dr. Ines Collins)
--- NOTE | 2025-05-03 15:46 | CM ---
CM reviewed chart, spoke with Baylee from [facility].
CM discussed per ID, plan to transition to oral medication upon d.c
Per chart- IR will discontinue R port, cx tip, place tunneled PICC- updates to Baylee.
Baylee will review tomorrow with CM any information/clinicals needed prior to d/c.
CM will continue to follow for all discharge planning needs.
Plan; home with continuance of care [facility] for IV magnesium
[2025-05-03] MEDS: LOVENOX 40 MG SC (17:30)
[2025-05-03] MEDS: LOPRESSOR 12.5 MG PO (20:22)
[2025-05-04 04:07] VITALS: BP 101/52
[2025-05-04 04:50] LABS: Hematocrit 29.8 % (37.0-47.0); Hemoglobin 9.6 g/dL (12.0-16.0); Mean Corp Hgb Conc. 32.2 g/dL (33.0-37.0); Mean Corpuscular Volume 102.1 fL (81.0-99.0); Platelet Count 161 10^3/uL (130-400); Red Cell Dist. Width 12.8 % (11.5-14.5)
[2025-05-04 05:16] LABS: Blood Urea Nitrogen 17 mg/dl (7-17); Calcium 8.3 mg/dl (8.4-10.2); Carbon Dioxide 29 mmol/L (22-30); Chloride 108 mmol/L (98-107); Estimated Creatinine Clearance 65 ml/min; Glucose 63 mg/dl (70-99); Magnesium 1.6 mg/dl (1.6-2.3); Potassium 4.2 mmol/L (3.5-5.1); Sodium 138 mmol/L (135-145); eGFR > 60.00
[2025-05-04 07:00] VITALS: BP 123/62
[2025-05-04] MEDS: LIDOCAINE 4% PATCH 1 PATCH TOPICAL (07:44)
[2025-05-04] MEDS: CELEXA 40 MG PO (07:45)
[2025-05-04] MEDS: NEURONTIN 200 MG PO (07:45)
[2025-05-04] MEDS: LOPRESSOR 12.5 MG PO (07:46)
[2025-05-04] MEDS: PROTONIX 40 MG PO (07:46)
[2025-05-04] MEDS: UROCIT-K 10 MEQ PO (07:46)
[2025-05-04] MEDS: NON-FORMULARY ITEM 2.3 MG SC (07:47)
[2025-05-04] MEDS: MAGNESIUM OXIDE 200 MG PO (07:47)
[2025-05-04] MEDS: LOW STRENGTH ASPIRIN 81 MG PO (07:47)
--- NOTE | 2025-05-04 10:50 | W.PN.ID1 ---
Date of Service
Date of Service: May 04, 2025
Today's Communication
- Last dose of ceftriaxone 2g IV q24h (d5) at noon today.
- Tomorrow start po levofloxacin 750mg po qd through 05/16/25. QTc 477.
-DC home today.
Assessment / Plan
# Klebsiella oxytoca CLABSI (L port), present on admission
# Short gut syndrome on magnesium infusion
# hx CLABSI (R port) with cardiac arrest, septic shock, ischemic digits (06/2024). Port dc'd.
- 04/29 outside bcx's 2 bottles from port + K. oxytoca, sensitivities noted.
second set of blood cx drawn peripherally negative to date
- blood cx's x2 here (drawn peripherally before abx): neg to date
- 05/03s/p IR removed R port and placed LIJ tunneled PICC for home IV magnesium.
Tip cx pending
- Last dose of ceftriaxone 2g IV q24h (d5) at noon today.
- Tomorrow start po levofloxacin 750mg po qd through 05/16/25. QTc 477.
# Conditions present on admission:
Atrial fibrillation
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
Short gut syndrome on IV magnesium via port
History of RCW port polymicrobial infection (06/2024)
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
LCW port placement 07/2024
Appendectomy
Chief Complaint
-: Bacteremia
Subjective / Review of Systems
No c/o
Vital Signs / Physical Exam
Vital Signs
Vital Signs
Temp Pulse Resp BP Pulse Ox
97.7 F 70 18 123/62 95
05/04/25 07:00 05/04/25 07:00 05/04/25 07:00 05/04/25 07:46 05/04/25 07:00
Physical Exam
Constitutional: No Acute Distress and Comfortable
Cardiovascular: Regular Rate and S1/S2
Pulmonary: Clear
Gastrointestinal: Soft, Non Tender and Non Distended
Extremities: Negative Edema
Neurological: AO x 3
Lines: PICC (Left tunneled PICC in place)
Objective Data
Lab Data
Lab Results
05/04/25 04:13
05/04/25 04:13
Estimated Creat Clear 65 ml/min 05/04/25 04:13
Lactic Acid Cancelled 04/30/25 23:30
Total Bilirubin 0.3 mg/dl (0.2-1.3) 04/30/25 19:39
AST 18 U/L (14-36) 04/30/25 19:39
ALT 19 U/L (0-35) 04/30/25 19:39
Alkaline Phosphatase 70 U/L (38-126) 04/30/25 19:39
Most recent labs reviewed.
Micro Results:
04/30/25 21:04 Blood Culture - Preliminary
Blood/Venous No Growth in 72 hours- Final report to follow
04/30/25 19:39 Blood Culture - Preliminary
Blood/Venous No Growth in 72 hours- Final report to follow
05/02/25 16:50 Catheter Tip Culture - Pending
Catheter Tip
04/30/25 19:39 Urine Culture - Final
Urine
04/30/25 CXR: Mild left basilar airspace opacities which may represent atelectasis or pneumonia.
Care Review
Plan reviewed with: Physician (Dr. Ines Collins)
[2025-05-04 11:00] VITALS: BP 95/48
[2025-05-04] MEDS: STERILE WATER FOR INJECTION 10 ML IV (11:26)
[2025-05-04] MEDS: ROCEPHIN 1000 MG IV (11:27)
--- NOTE | 2025-05-04 11:51 | W.DCSUMMARY ---
Discharge Summary
Discharge Data
Date of Admission: 04/30/25
Date of Discharge: 05/04/25
-
Pending Results: No
Hospital Course
Discharging Physician : Dr Wilfredo Collins
Disposition : To home
Primary care physician : Dr Juanito Crane
Principal Discharge diagnosis :
Klebsiella oxytoca bacteremia from central line associated blood stream infection
Chronic Discharge diagnosis :
History of short gut syndrome
History of recurrent hypomagnesemia requiring intravenous replacement
Paroxysmal atrial fibrillation
Depression/anxiety
Physical examination:
GEN: aox3
HEENT: Moist mucous membrane/no lymphadenopathy
Chest: Left upper chest tunneled catheter in place, no ecchymosis/swelling at the site
Ext: No edema
Hospital Course :
Patient is a 74-year-old female with admission past medical history was sent to ER by primary GI office for patient found to have bacteremia on routine outpatient blood culture. Patient have history of short gut syndrome and resultant severe
recurrent hypomagnesemia requiring weekly magnesium transfusion. This has been done through a Port-A-Cath in place. Patient was having some generalized weakness and was not seeming like herself by visiting nurse services assessment last week.
Patient had a blood culture drawn from port and peripheral line as part of workup which later reported to be positive for Klebsiella. Patient was requested to come to the hospital for further management. Based on preliminary report patient was
started on Rocephin. Repeat blood cultures were collected in the hospital which remain negative till day of discharge. Port-A-Cath was considered to be likely source of bacteremia and was removed. This was transition to tunnel catheter. ID
recommended patient to be maintained on oral Levaquin therapy for next 2 weeks. Patient will follow-up with outpatient GI and will have eventually port-a-cath replaced.
Important imaging findings :
None
Procedure findings :
None
Discharge Plan
-
Patient Disposition: Home (Routine Discharge)
Discharge Diagnosis/Procedures: Klebsiella bacteremia
Condition: Fair
Diet: Regular
Activity: As tolerated
Driving Restrictions: No driving
Bathing Restrictions: OK to Shower
Activity Restrictions/Additional Instructions:
If taking antacid, iron, zinc, or Carafate, take these products 6 hours before or 2 hours after levofloxacin.
Referrals:
Juanito Crane MD [Family Provider, Internal Medicine] - in one week
Marily Ramírez MD [Non-Admitting Privileges, Internal Medicine] - in two to four weeks
Prescriptions:
New
levofloxacin 750 mg tablet
750 mg PO DAILY Qty: 10 0RF
Continued
sennosides [Senokot] 8.6 mg Tablet
8.6 mg PO DAILY PRN (Reason: constiptation)
citalopram [Celexa] 40 mg Tablet
40 mg PO DAILY
ondansetron HCl 4 mg Tablet
4 mg PO Q8H PRN (Reason: nausea)
diphenoxylate-atropine 2.5-0.025 mg Tablet
1 tab PO BID
acetaminophen 650 mg Tablet
650 mg PO Q6H PRN (Reason: pain)
hydromorphone [Dilaudid] 2 mg Tablet
2 mg PO Q4H PRN (Reason: RIGORS)
potassium citrate 10 mEq (1,080 mg) Tablet Extended Release
10 meq PO DAILY
diphenhydramine HCl [Benadryl] 25 mg Capsule
25 mg PO HS PRN (Reason: insomnia)
cyanocobalamin (vitamin B-12) 1,000 mcg/mL Solution
1,000 mcg SC DAILY
lidocaine [Lidoderm] 5 % Adhesive Patch,Medicated
1 patch TOPICAL DAILY
vitamin E 400 unit Tablet
180 mg PO DAILY
aspirin 81 mg Tablet,Chewable
81 mg PO DAILY
gabapentin 100 mg Capsule
200 mg PO BID
esomeprazole magnesium [Nexium] 20 mg Capsule,Delayed Release(Dr/Ec)
20 mg PO BID
oxycodone 5 mg Tablet
5 mg PO Q6H PRN (Reason: pain)
sumatriptan succinate 6 mg/0.5 mL Pen Injector
6 mg SC ONCE PRN (Reason: Migraines)
metoprolol tartrate 25 mg Tablet
12.5 mg PO BID
magnesium sulfate in LR 40 gram/500 mL Solution
3 g IV ONCE
cholecalciferol (vitamin D3) [Vitamin D3] 25 mcg (1,000 unit) Tablet
50 mcg PO DAILY
diclofenac sodium 1 % Gel
4 g TOPICAL QID
Rx Instructions:
Left ribs
melatonin 5 mg Tablet
10 mg PO HS PRN (Reason: insomnia)
Slow-Mag 71.5 mg Tablet,Delayed Release (Dr/Ec)
143 mg PO BID
Rx Instructions:
2 tabs BID
teduglutide 5 mg Kit
5 mg SC DAILY
Rx Instructions:
0.23ml sq daily
Discharge Orders:
Discharge Patient (As Directed); Ordered 05/04/25
Ordered By: Wilfredo Collins
Discharge Date and Time
Print Language: SAMMARINESE
--- NOTE | 2025-05-04 12:14 | CM ---
Pt cleared for discharge home with [facility] for PICC care. They are requesting RX for the PICC care; Dr. Collins notified of same. Due to upcoming holiday, ALFONSO does not want to risk any delays.
Plan: Discharge to home with [facility] for PICC care.
== END 2025-05-04 13:38 | disposition home health service (06) | DRG 315 ==
LOC: 4 WEST ACU 22:01
PROVIDERS: Radiology Vascular & Interventional Radiology; Registered Nurse; Student in an Organized Health Care Education/Training Program; ADMITTING PHYSICIAN Internal Medicine; ATTENDING PHYSICIAN Hospitalist; CONSULT PHYSICIAN Internal Medicine Infectious Disease; EMERGENCY PHYSICIAN Emergency Medicine; FAMILY PHYSICIAN Internal Medicine
PROC: 3E0336Z Introduction of Nutritional Substance into Peripheral Vein, Percutaneous Approach (ICD-10-PCS; 2025-05-03)
PROC: 02HV33Z Insertion of Infusion Device into Superior Vena Cava, Percutaneous Approach (ICD-10-PCS; 2025-05-03)
PROC: 0JPT0XZ Removal of Tunneled Vascular Access Device from Trunk Subcutaneous Tissue and Fascia, Open Approach (ICD-10-PCS; 2025-05-03)
DX: T80.211A Bloodstream infection due to central venous catheter, initial encounter (principal); K90.829 Short bowel syndrome, unspecified; R64 Cachexia; Z68.1 Body mass index [BMI] 19.9 or less, adult; Q43.3 Congenital malformations of intestinal fixation; I48.0 Paroxysmal atrial fibrillation; Y83.8 Other surgical procedures as the cause of abnormal reaction of the patient, or of later complication, without mention of misadventure at the time of the procedure; Z86.74 Personal history of sudden cardiac arrest
CPT/HCPCS: 36558; 36582; 70450; 71046; 75827; 76937; 77001; 80048; 80053; 81003; 81015; 83605; 83735; 85025; 85027; 87040; 87077; 87084; 87086; 93005; 93306; 96374; 97116; 97162; 97530; 99152; 99153; 99284